=== PATIENT | male | born 1985 | race Caucasian/White ===

== ENCOUNTER 2019-10-16 10:31 | Emergency (ER) | payer BC, OTHER ==
--- NOTE | 2019-10-16 10:55 | ED ---
GI/ HPI - HPI Summary HPI Summary: [facility] pt 34 Y/[facility] his with a CC of ejaculating blood earlier today following intercourse. He states that after the episode he had hematuria but denies any pain during these episodes. He states that he had a similar episode 2 months ago which also had no pain associated with it. He states that two weeks ago he and his boyfriend were tested for STDs and both were negative, he reports no chance to have developed an STD in that time. He denies fevers, chills, headaches, N/V, hematuria, penile discharge, testicular pain, and prostate pain. He states no pertinent PMHx but states that he has a Hx of smoking cigarettes. He has no alleviating factors. - History of Current Complaint Chief Complaint: EDUrogenitalProblems Time Seen by Provider: 10/16/19 10:37 Stated Complaint: GENERAL PER PT Hx Obtained From: Patient Onset/Duration: Started Hours Ago Timing: Constant Current Severity: None Pain Intensity: 0 Associated Signs and Symptoms: Positive: Negative - headaches, testicular pain, , Other: - POSITVE: blood during ejaculation. Negative: Nausea, Vomiting, Rectal Pain, Discharge, Fever, Hematuria, Dysuria, Abdominal Pain Additional Signs & Symptoms: Negative: Penile Discharge, STD Aggravating Factor(s): Anal [place] Alleviating Factor(s): Nothing - Allergy/Home Medications Allergies/Adverse Reactions: Allergies Allergy/AdvReac Type Severity Reaction Status Date / Time No Known Allergies Allergy Verified 10/16/19 10:36 Home Medications: Home Medications Multivitamin [Multivitamins] 1 cap PO DAILY 04/22/17 [History Confirmed 10/16/19 ] buPROPion TAB* [Wellbutrin TAB*] 100 mg PO BID 10/16/19 [History Confirmed 10/16] PMH/Surg Hx/FS Hx/Imm Hx Previously Healthy: Yes Endocrine/Hematology History: Denies: Hx Diabetes Cardiovascular History: Denies: Hx Hypertension Psychiatric History: Denies: Hx Eating Disorder, Hx of Violent Episodes Against Others - Cancer History Hx Chemotherapy: No Hx Radiation Therapy: No - Surgical History Surgical History: None - Immunization History Immunizations Up to Date: Yes Infectious Disease History: No Infectious Disease History: Denies: Traveled Outside the [place] in Last 30 Days - Family History Known Family History: Negative: Hypertension, Diabetes - Social History Occupation: Employed Full-time Lives: With Family Alcohol Use: Rare Hx Substance Use: No Substance Use Type: Reports: None Hx Tobacco Use: Yes Smoking Status (MU): Light Every Day Tobacco Smoker Type: Cigarettes Have You Smoked in the Last Year: Yes Review of Systems Negative: Fever, Chills Negative: Vomiting, Nausea Positive: other - NEGATIVE: penile discharge, prostate pain, testicular pain . Negative: dysuria, hematuria Negative: Headache All Other Systems Reviewed And Are Negative: Yes Physical Exam - Summary Physical Exam Summary: Constitutional: Well-developed, Well-nourished, Alert. (-) Distressed Skin: Warm, Dry HENT: Normocephalic; Atraumatic Eyes: Conjunctiva normal Neck: Musculoskeletal ROM normal neck. (-) JVD, (-) Stridor, (-) Tracheal deviation Cardio: Rhythm regular, rate normal, Heart sounds normal; Intact distal pulses; The pedal pulses are 2+ and symmetric. Radial pulses are 2+ and symmetric. (-) Murmur Pulmonary/Chest wall: Effort normal. (-) Respiratory distress, (-) Wheezes, (-) Rales Abd: Soft, (-) tenderness, (-) Distension, (-) Guarding, (-) Rebound Musculoskeletal: (-) Edema Lymph: (-) Cervical adenopathy Neuro: Alert, Oriented x3 Psych: Mood and affect Normal Testicular: no lesions, no lymphadenopathy, no prostate tenderness or bogginess Triage Information Reviewed: Yes Vital Signs On Initial Exam: Initial Vitals Temp Pulse Resp BP Pulse Ox 98.0 F 84 16 137/90 99 10/16/19 10:33 10/16/19 10:33 10/16/19 10:33 10/16/19 10:33 10/16/19 10:33 Vital Signs Reviewed: Yes Procedures - Sedation Patient Received Moderate/Deep Sedation with Procedure: No Diagnostics - Vital Signs Vital Signs Temp Pulse Resp BP Pulse Ox 10/16/19 10:33 98.0 F 84 16 137/90 99 - Laboratory Lab Statement: Any lab studies that have been ordered have been reviewed, and results considered in the medical decision making process. GIGU Course/Dx - Course Course Of Treatment: Patient is here after ejaculating blood. Patient had no pain with ejaculation and has no pain in his testicles, discharge, fever, chills. Patient had a similar episode in July that he did not get evaluated. Patient has a normal testicular and penile exam. Patient has no evidence of prostatitis on exam. Patient is not on any blood thinners. Patient had microscopic hematuria in his UA. Patient had negative testing for STDs 2 weeks ago. Patient had a gonorrhea and Chlamydia assessment today. Patient was referred to urology for follow-up - Diagnoses Provider Diagnoses: Hematospermia Discharge ED - Sign-Out/Discharge Documenting (check all that apply): Patient Departure - discharge - Discharge Plan Condition: Good Disposition: HOME Referrals: Santy Lopez MD [Medical Doctor] - 2 Days Additional Instructions: RETURN TO THE EMERGENCY DEPARTMENT FOR ANY NEW OR WORSENING SYMPTOMS INCLUDING INCREASED BLOOD IN YOUR SPERM, ANY EXCESSIVE DISCHARGE, AND TESTICULAR PAIN. PLEASE FOLLOW UP WITH DR. LOPEZ, UROLOGY, IN 2-3 DAYS FOR FURTHER CARE. - Billing Disposition and Condition Condition: GOOD Disposition: Home - Attestation Statements Document Initiated by Scribe: Yes Documenting Scribe: David Schultz Provider For Whom Scribe is Documenting (Include Credential): Sher Harrison MD Scribe Attestation: David Schaffer, scribed for Sher Harrison MD on 10/16/19 at 1311. Scribe Documentation Reviewed: Yes Provider Attestation: The documentation as recorded by the David pressley accurately reflects the service I personally performed and the decisions made by , Sher Harrison MD Status of Scribe Document: Viewed
--- OUTSIDE RECORDS SUMMARY | 2019-10-16 11:10 | XMS REPORT | Continuity of Care Document ---
:1985 External Reference #:[id number] Author Name Jaylan Steiner M.D. 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 [phone] Problems Description No Information Available Social History Type Date Description Comments Sex Unknown Tobacco Use Start: Unknown current cigarette smoker 1/2 PPD ETOH Use Occasionally consumes alcohol Tobacco Use Start: Unknown Patient is a current less than 10 cigarettes smoker, smokes every day per day Smoking Status Reviewed: 09/30/19 Patient is a current less than 10 cigarettes smoker, smokes every day per day Allergies, Adverse Reactions, Alerts Description No Known Drug Allergies Medications Active Medications SIG Qnty Indications Ordering Provider Date Multi-Vitamin 1 po qd Unknown Tablets Bupropion Hydrochloride Take 1 Tablet By Unknown ER (SR) Mouth Once Daily 100mg Tablets ER In The Morning 12HR Medications Administered in Office Medication SIG Qnty Indications Ordering Provider Date PPD Injection Forest Harris NP 01/26/2018 Immunizations CPT Code Status Date Vaccine Reaction Lot # [id number] Given 07/28/2018 Hepatitis A Vaccine Adult [id number] Dosage Contract [id number] Given 02/26/2018 Hepatitis B Vaccine Adult [id number] Dosage Contract [id number] Given 01/26/2018 Hepatitis B Vaccine Adult No immediate reaction...jh [id number] Dosage Contract Vital Signs Date Vital Result Comment 09/30/2019 1:51pm Height 66.75 inches 5'6.75" Weight 128.00 lb Heart Rate 84 /min BP Systolic Sitting 120 mmHg BP Diastolic Sitting 72 mmHg Respiratory Rate 14 /min Body Temperature 97.7 F BMI (Body Mass Index) 20.2 kg/m2 01/26/2018 9:26am Height 66.75 inches 5'6.75" Weight 122.00 lb Heart Rate 82 /min BP Systolic 125 mmHg BP Diastolic 71 mmHg Body Temperature 97.3 F O2 % BldC Oximetry 98 % BMI (Body Mass Index) 19.2 kg/m2 Results Description No Information Available Procedures Description No Information Available Medical Devices Description No Information Available Encounters Description No Information Available Assessments Date Code Description Provider 09/30/2019 R76.8 Other specified abnormal immunological Jaylan Steiner M.D. 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 We discussed false negative RPR can occur in setting of newly acquired infection, usually people have a chancre at that time. Otherwise RPR used to detect active infection. Functional Status Description No Information Available Mental Status Description No Information Available Referrals Description No Information Available
[2019-10-16 11:35] LABS: Urine Appearance Turbid; Urine Bilirubin Negative (Negative); Urine Blood 3+ (Negative); Urine Color Yellow; Urine Glucose Negative (Negative); Urine Ketones Negative (Negative); Urine Nitrite Negative (Negative); Urine Protein Negative (Negative); Urine Specific Gravity 1.015 (1.010-1.030); Urine Urobilinogen Negative (Negative)
[2019-10-16 11:53] LABS: Urine Bacteria 1+ (Absent); Urine Red Blood Cell 3+(>10/hpf) (Absent); Urine White Blood Cell Trace(0-5/hpf) (Absent)
[2019-10-16 12:21] VITALS: BP 127/84
[2019-10-18 14:15] LABS: Chlamydia trachomatis NAA Negative (Negative); Neisseria gonorrhoeae (GC) NAA Negative (Negative)
== END 2019-10-16 12:20 | disposition home or self-care (01) ==
LOC: ED 10:31
DX: R36.1 Hematospermia (principal); F17.210 Nicotine dependence, cigarettes, uncomplicated
CPT/HCPCS: 81003; 81015; 87086; 87491; 87591; 99282